=== PATIENT | female | born 1980 | race Caucasian/White ===

== ENCOUNTER → 2017-05-31 14:56 | Outpatient (CLI) | payer MEDICAID, BC ==
[2015-02-27 06:34] VITALS: BMI 26.6
[~2017-05-31 14:56] MED LIST: HYDROCODONE-APA1 TAB PO; PRILOSEC20 MG PO
== END | disposition home or self-care (01) ==
LOC: D.MRI 14:56
DX: M54.2 Cervicalgia (principal)

== ENCOUNTER → 2017-07-14 09:32 | Outpatient (CLI) | payer MEDICAID, BC ==
[2015-02-27 06:34] VITALS: BMI 26.6
== END ==
LOC: D.MAMMO 06-28 09:15
DX: Z12.31 Encounter for screening mammogram for malignant neoplasm of breast (principal)

== ENCOUNTER 2017-09-08 09:00 | Emergency (ER) | payer MEDICAID ==
[2015-02-27 06:34] VITALS: BMI 26.6
[2017-09-08 09:43] LABS: BASOPHILS 0.2 % (0-2); EOSINOPHILS 0.2 % (0-7); HEMATOCRIT 39.3 % (36.0-48.0); HEMOGLOBIN 13.5 g/dL (12-16); IMMATURE GRANULOCYTES 0.3 % (0-5); LYMPHOCYTES 11.2 % (15-50); MCH 30.6 pg (26.0-34.0); MCHC 34.4 g/dL (31.0-37.0); MCV 89.1 fL (80.0-100.0); MONOCYTES 6.7 % (2-11); NEUTROPHILS 81.4 % (40-80); PLATELET COUNT 205 10x3/uL (130-400); RBC 4.41 10x6/uL (4.00-5.40); RDW 12.1 % (11.5-14.5); WBC 12.1 10x3/uL (4.8-10.8)
[2017-09-08 09:58] LABS: ALBUMIN 3.7 g/dL (3.4-5.0); ALKALINE PHOSPHATASE 153 U/L (46-116); ALT (SGPT) 306 U/L (10-68); AMYLASE - SERUM 58 U/L (25-115); BILIRUBIN - TOTAL 0.66 mg/dL (0.2-1.3); CALC OSMOLALITY 277 mosm/kg (275-300); CALCIUM 9.1 mg/dL (8.5-10.1); CARBON DIOXIDE 25.7 mmol/L (21.0-32.0); CHLORIDE - SERUM 103 mmol/L (98-107); CREATININE - SERUM 0.7 mg/dL (0.6-1.3); GLUCOSE 104 mg/dL (74-106); LIPASE 196 U/L (73-393); POTASSIUM - SERUM 3.9 mmol/L (3.5-5.1); PROTEIN - SERUM 7.6 g/dL (6.4-8.2); SODIUM 138 mmol/L (136-145); UREA NITROGEN 17 mg/dL (7-18); eGFR NON AFRICAN AMERICAN > 90 mL/min (90-120)
[2017-09-08 10:14] LABS: APPEARANCE HAZY (CLEAR); BILIRUBIN NEGATIVE (NEGATIVE); COLOR YELLOW (YELLOW); GLUCOSE NEGATIVE (NEGATIVE); KETONE NEGATIVE (NEGATIVE); NITRITE NEGATIVE (NEGATIVE); PROTEIN NEGATIVE (NEGATIVE); SPECIFIC GRAVITY 1.015 (1.005-1.020); UROBILINOGEN NORMAL (NORMAL)
[2017-09-08 10:15] LABS: BACTERIA MANY /hpf (NONE SEEN); MUCUS <1+ /lpf (NONE SEEN); RED CELLS - URINE 0-5 /hpf (0-5); WHITE CELLS - URINE OCC /hpf (0-5); YEAST <1+ /hpf (NONE SEEN)
== END 2017-09-08 14:15 | disposition home or self-care (01) ==
LOC: D.ER 09:00
PROVIDERS: Emergency Medicine
DX: R10.9 Unspecified abdominal pain (principal); N39.0 Urinary tract infection, site not specified

== ENCOUNTER → 2019-04-16 10:02 | Outpatient (CLI) | payer MEDICAID ==
[2015-02-27 06:34] VITALS: BMI 26.6
== END | disposition home or self-care (01) ==
LOC: D.HCCARDIO 10:00
PROVIDERS: ATTEND Internal Medicine Cardiovascular Disease
DX: R00.2 Palpitations (principal)

== ENCOUNTER 2019-08-09 10:03 | Emergency (ER) | payer MEDICAID ==
[~2019-08-09] VITALS: Ht 152.4 cm; Wt 59.1 kg
[2019-08-09 10:09] VITALS: Ht 152.4 cm; Wt 59.1 kg
[2019-08-09] MEDS ORDERED: LOPRESSOR25 MG PO (10:11)
[2019-08-09] MEDS ORDERED: ULTRAM50 MG PO (10:12)
[2019-08-09 10:40] LABS: BASOPHILS 0.9 % (0-2); EOSINOPHILS 0.7 % (0-7); HEMATOCRIT 39.5 % (36.0-48.0); HEMOGLOBIN 13.5 g/dL (12-16); LYMPHOCYTES 27.2 % (15-50); MCH 30.7 pg (26.0-34.0); MCHC 34.2 g/dL (31.0-37.0); MCV 89.8 fL (80.0-100.0); MEAN PLATELET VOLUME 10.6 fL (7.4-10.4); MONOCYTES 7.8 % (2-11); NEUTROPHILS 63.4 % (40-80); PLATELET COUNT 190 10x3/uL (130-400); RDW 12.6 % (11.5-14.5); WBC 5.4 10x3/uL (4.8-10.8)
[2019-08-09 10:53] LABS: APTT 31.4 SECONDS (22.8-39.4); INR 1.05 (0.85-1.17); PROTIME 13.2 SECONDS (11.6-15.0)
[2019-08-09 11:24] LABS: ALBUMIN 4.2 g/dL (3.4-5.0); ALKALINE PHOSPHATASE 61 U/L (46-116); ALT (SGPT) 14 U/L (10-68); BILIRUBIN - TOTAL 0.65 mg/dL (0.2-1.3); CALC OSMOLALITY 285 mosm/kg (275-300); CALCIUM 8.8 mg/dL (8.5-10.1); CARBON DIOXIDE 26.8 mmol/L (21.0-32.0); CHLORIDE - SERUM 106 mmol/L (98-107); CREATININE - SERUM 0.8 mg/dL (0.6-1.3); GLUCOSE 95 mg/dL (74-106); POTASSIUM - SERUM 4.1 mmol/L (3.5-5.1); PROTEIN - SERUM 7.8 g/dL (6.4-8.2); SODIUM 144 mmol/L (136-145); UREA NITROGEN 11 mg/dL (7-18); eGFR NON AFRICAN AMERICAN 84 mL/min (90-120)
[2019-08-09 11:33] LABS: CKMB 0.4 U/L (0.0-3.6); CREATINE KINASE 78 UL (21-215); MAGNESIUM - SERUM 1.9 mg/dL (1.8-2.4); TROPONIN-I < 0.017 ng/mL (0.000-0.060)
[2019-08-09 13:09] LABS: CKMB 0.3 U/L (0.0-3.6); CREATINE KINASE 74 UL (21-215)
[2019-08-09 13:10] LABS: TROPONIN-I < 0.017 ng/mL (0.000-0.060)
[2019-08-09] MEDS ORDERED: OMEPRAZOLE40 MG PO (14:32)
[2019-08-09] MEDS ORDERED: VOLTAREN75 MG PO (14:32)
[2019-08-09 19:29] VITALS: BP 95/54
== END 2019-08-09 14:57 | disposition home or self-care (01) ==
LOC: D.ER 10:03
PROVIDERS: Family Medicine
DX: M94.0 Chondrocostal junction syndrome [Tietze] (principal)

== ENCOUNTER → 2021-03-09 08:39 | Outpatient (CLI) | payer MEDICAID ==
[2019-08-09 10:09] VITALS: BMI 25.4
[~2021-03-09 08:39] MED LIST changes: +LOPRESSOR25 MG PO; +OMEPRAZOLE40 MG PO; +ULTRAM50 MG PO; +VOLTAREN75 MG PO
== END | disposition home or self-care (01) ==
LOC: D.HCCECHO 03-04 08:30
PROVIDERS: ATTEND Internal Medicine Cardiovascular Disease
DX: R00.2 Palpitations (principal)